=== PATIENT | male | born 1995 | race Caucasian/White ===

== ENCOUNTER 2016-10-25 21:33 | Emergency (ER) | payer OTHER | END 2016-10-26 | disposition left against medical advice (07) | LOC: ER1 21:33 | DX: R05 Cough (principal); Z53.8 Procedure and treatment not carried out for other reasons ==

== ENCOUNTER 2021-12-19 16:23 | Emergency (ER) | payer OTHER ==
[~2021-12-19 16:23] MED LIST: CLEOCIN HCL300 MG PO; IBUPROFEN600 MG PO; IBUPROFEN800 MG PO; PERCOCET 5/325 T1 EA PO; ZOFRAN4 MG PO
[2021-12-19] MEDS ORDERED: IBUPROFEN600 MG PO (17:17)
== END 2021-12-19 17:22 | disposition home or self-care (01) ==
LOC: ER1 16:23
DX: S62.636A Displaced fracture of distal phalanx of right little finger, initial encounter for closed fracture (principal); F17.210 Nicotine dependence, cigarettes, uncomplicated; W22.8XXA Striking against or struck by other objects, initial encounter; Y92.009 Unspecified place in unspecified non-institutional (private) residence as the place of occurrence of the external cause
CPT/HCPCS: 73130; 99283

== ENCOUNTER 2022-04-30 23:26 | Emergency (ER) | payer OTHER ==
[2022-05-01 00:20] LABS: HEMOGLOBIN 14.2 gm/dl (14.0-17.5); RED BLOOD COUNT 4.55 M/UL (4.20-5.50); WHITE BLOOD COUNT 9.7 K/UL (4.5-11.0)
[2022-05-01 01:00] LABS: BUN/CREATININE RATIO 16 (0-10)
== END 2022-05-01 02:41 | disposition home or self-care (01) ==
LOC: ER1 23:26
DX: R09.81 Nasal congestion (principal); R53.83 Other fatigue; F17.210 Nicotine dependence, cigarettes, uncomplicated; Z20.822 Contact with and (suspected) exposure to COVID-19
CPT/HCPCS: 80053; 85025; 99283; U0002